=== PATIENT | female | born 1995 | race African-American/Black ===

== ENCOUNTER 2023-06-16 13:10 | Inpatient (IN) | payer OTHER ==
[2023-06-16] MEDS: ELECTROLYTE-148 SOLN 500 ML IV SCH (13:57)
[2023-06-16] MEDS: ELECTROLYTE-148 SOLN 1,000 ML IV SCH (13:57)
[2023-06-16 15:05] LABS: BASO % 0.5 % (0-2.0); EOS % 4.2 % (0-4.5); HEMOGLOBIN 10.4 GM/dL (10.7-15.3); LYMPH % 14.3 % (8-40); MCH 29.4 pg (25.7-33.7); MCHC 32.5 g/dl (32.0-36.0); MEAN CELL VOLUME 90.5 fl (80-96); MONO % 6.2 % (3.8-10.2); NEUT % 74.8 % (42.8-82.8); PLATELET COUNT 380 10^3/uL (134-434); RBC 3.53 M/mm3 (3.60-5.2); RDW 13.3 % (11.6-15.6)
[2023-06-16 15:12] LABS: INR 1.02 (0.83-1.09); PROTHROMBIN TIME (PATIENT) 11.8 SEC (9.7-13.0)
[2023-06-16 15:15] LABS: ACTIVATED PTT 24.4 SECONDS (25.2-36.5)
[2023-06-16 15:26] LABS: POTASSIUM 4.2 mmol/L (3.5-5.1)
[2023-06-16 15:27] LABS: CALCIUM 9.2 mg/dL (8.5-10.1)
[2023-06-16 15:31] LABS: CREATININE 0.7 mg/dL (0.55-1.3)
[2023-06-16 15:54] VITALS: BMI 39.4
[2023-06-16 16:24] LABS: HIV INTERPRETATION NEGATIVE (NEGATIVE)
[2023-06-16] MEDS: CITRIC ACID/SODIUM CITRATE 30 ML UNIT-DOSE CUP PO ONE (18:24)
[2023-06-16] MEDS ORDERED: OXYTOCIN 30 UNITS in 0.9% NS 30 UNIT/500 ML INFUS.BAG IVPB ONE (19:31)
[2023-06-16] MEDS ORDERED: FENTANYL CITRATE/PF 50 MCG/ML VIAL ONE (19:34)
[2023-06-16] MEDS ORDERED: morphine SULFATE/PF 1 MG/2 ML (2cc Syringe - QUVA) ONE (19:34)
[2023-06-16] MEDS ORDERED: DEXAMETHASONE SOD PHOSPHATE 4 MG/1 ML VIAL ONE (19:35)
[2023-06-16] MEDS ORDERED: ONDANSETRON 4 MG/2 ML VIAL ONE (19:35)
[2023-06-16] MEDS ORDERED: ceFAZolin SODIUM 1 GM VIAL ONE (19:35)
[2023-06-16] MEDS ORDERED: METOCLOPRAMIDE HCL INJECTION 10 MG/2 ML VIAL ONE (19:35)
[2023-06-16] MEDS ORDERED: PHENYLEPHRINE HCL 10 MG/1 ML SINGLE DOSE VIAL ONE (19:35)
[2023-06-16] MEDS ORDERED: KETOROLAC TROMETHAMINE 30 MG/1 ML VIAL ONE (20:53)
[2023-06-16] MEDS: METHYLERGONOVINE MALEATE 0.2 MG/1 ML AMP IM ONE (21:29)
[2023-06-16] MEDS ORDERED: ACETAMINOPHEN 325 MG TABLET (FP) PO PRN (21:44)
[2023-06-16] MEDS ORDERED: METHYLERGONOVINE MALEATE 0.2 MG/1 ML AMP IM PRN (21:44)
[2023-06-16] MEDS ORDERED: ONDANSETRON 4 MG/2 ML VIAL IVPUSH PRN (21:49)
[2023-06-16] MEDS ORDERED: ALBUTEROL SO4 HFA INHALER IH PRN (21:54)
[2023-06-16] MEDS: OXYTOCIN 20 UNITS in 0.9% NS 20 UNIT/1,000 ML INFUS.BAG IV SCH (21:55)
[2023-06-16] MEDS: ACETAMINOPHEN 1000 MG/100 ML BAG IVPB PRN (21:55)
[2023-06-16] MEDS ORDERED: IBUPROFEN 800 MG/8 ML IJ IVPB ONE (23:44)
[2023-06-16] MEDS ORDERED: LABETALOL HCL 200 MG TABLET (FP) ONE (23:44)
[2023-06-16] MEDS: LABETALOL HCL 200 MG TABLET (FP) PO SCH (23:46)
[2023-06-16] MEDS: IBUPROFEN 800 MG/8 ML IJ IVPB PRN (23:51)
[2023-06-17 07:07] LABS: BASO % 0.1 % (0-2.0); EOS % 0.1 % (0-4.5); HEMATOCRIT 26.5 % (32.4-45.2); HEMOGLOBIN 8.7 GM/dL (10.7-15.3); LYMPH % 10.6 % (8-40); MCH 29.4 pg (25.7-33.7); MCHC 32.8 g/dl (32.0-36.0); MEAN CELL VOLUME 89.7 fl (80-96); MEAN PLT VOLUME 8.1 fl (7.5-11.1); NEUT % 84.2 % (42.8-82.8); PLATELET COUNT 306 10^3/uL (134-434); RBC 2.95 M/mm3 (3.60-5.2); RDW 13.1 % (11.6-15.6); WHITE BLOOD COUNT 15.7 K/mm3 (4.0-10.0)
[2023-06-17] MEDS: morphine SULFATE/PF 1 MG/2 ML (2cc Syringe - QUVA) IT ONE (09:02)
[2023-06-17] MEDS: ELECTROLYTE-148 SOLN 1,000 ML IV SCH (09:03)
[2023-06-17] MEDS ORDERED: oxyCODONE HCL 5 MG TABLET PO PRN ×2 (09:44)
[2023-06-17] MEDS: PRENATAL VITAMINS W/ FOLIC ACID TABLET (FP) PO SCH (09:48)
[2023-06-17] MEDS: FERROUS SO4 325 MG TABLET (FP) PO SCH (09:48)
[2023-06-17] MEDS: IBUPROFEN 600 MG TABLET (FP) PO PRN (15:21)
[2023-06-17] MEDS: SIMETHICONE 80 MG TAB.CHEW (FP) PO PRN (19:46)
[2023-06-17] MEDS: SENNOSIDES/DOCUSATE COMBO (SENNA PLUS) TABLET (UD) PO PRN (21:40)
[2023-06-17] MEDS ORDERED: BISACODYL 10 MG SUPP.RECT RC PRN (21:44)
[2023-06-17 22:11] VITALS: RESP 18
[2023-06-19 10:16] VITALS: BP 148/72; PULSE 99; TEMP 98.2
== END 2023-06-19 13:40 | disposition home or self-care (01) | DRG 540 ==
LOC: JLDR 13:10 → J3W 06-17 00:30
PROVIDERS: ADMIT Obstetrics & Gynecology; ATTEND Obstetrics & Gynecology
PROC: 10D00Z1 Extraction of Products of Conception, Low, Open Approach (ICD-10-PCS; principal; 2023-06-16)
DX: O64.0XX0 Obstructed labor due to incomplete rotation of fetal head, not applicable or unspecified (principal); O10.92 Unspecified pre-existing hypertension complicating childbirth; O42.02 Full-term premature rupture of membranes, onset of labor within 24 hours of rupture; O48.0 Post-term pregnancy; Z3A.40 40 weeks gestation of pregnancy; Z37.0 Single live birth
CPT/HCPCS: 36415; 80048; 85025; 85610; 85730; 86780; 86850; 86900; 86901; 87389; 94010; J0131

== ENCOUNTER 2023-10-24 20:53 | Emergency (ER) | payer OTHER ==
[2023-10-24 21:01] VITALS: BP 152/91; PULSE 72; RESP 18; TEMP 98.5; BMI 37.9
[2023-10-24 22:06] LABS: URINE APPEARANCE CLEAR; URINE BILIRUBIN NEGATIVE (NEGATIVE); URINE COLOR YELLOW; URINE GLUCOSE (UA) NEGATIVE (NEGATIVE); URINE KETONE NEGATIVE (NEGATIVE); URINE LEUK ESTERASE NEGATIVE (NEGATIVE); URINE NITRITE NEGATIVE (NEGATIVE); URINE PROTEIN NEGATIVE (NEGATIVE)
[2023-10-24 22:40] LABS: HCG,QUALITATIVE URINE NEGATIVE
== END 2023-10-24 22:47 | disposition home or self-care (01) ==
LOC: JERFT 20:53
DX: I10 Essential (primary) hypertension (principal)
CPT/HCPCS: 81003; 84703; 99283-25